=== PATIENT | female | born 1945 | race Caucasian/White ===

== ENCOUNTER 2016-07-16 14:58 | Inpatient (IN) | payer OTHER ==
[~2016-07-16] VITALS: Ht 152.4 cm; Wt 76.1 kg
[~2016-07-16 14:58] MED LIST: ALEVE220 M2 PO; AMITRIPTYLINE H10 M1 PO; AMLODIPINE BESY10 MG PO; ASPIRIN81 M1 PO; ATARAX,VISTARIL25 MG PO; AUGMENTIN875 MG PO; BENTYL10 MG PO; BENTYL20 MG PO; BIOTIN 5000MCG PO; BIOTIN1 MG PO; BISACODYL5 MG PO; BUTALB-APAP-CA1 EACH PO; Bentyl PO; CHOLESTROL MED; CLEOCIN300 MG PO; COLACE100 MG PO; COZAAR50 MG PO; D-VERT25 MG PO; DEPAKOTE ER500 MG PO; DEPAKOTE125 MG PO; DESYREL12.5 MG PO; DETROL LA2 MG PO; DETROL LA4 MG PO; DICYCLOMINE HCL10 MG PO; DICYCLOMINE HCL20 MG PO; DIOVAN HCT 81 TABLET PO; DIOVAN40 MG PO; DIVALPROEX SOD500 M1 PO; Depakote ER (Extende PO; Desyrel PO; Diovan HCT 80/12.5 PO; ENDOCET 5-3251 EACH PO; ESCITALOPRAM OX10 MG PO; Ecotrin PO; FENOFIBRATE54 M1 PO; FIBER DIET1 EACH PO; FIBER LAXATIV0.52 GM PO; FIBER THERAPY0.52 GM PO; FIBER0.52 GM PO; FIORICET,ESG1 TABLET PO; FLAGYL500 MG PO; FLONASE16 G1 BOTH NARES; FLORASTOR250 MG PO; FUROSEMIDE20 MG PO; GABAPENTIN300 MG PO; GEODON60 MG PO; GERD; HYDROCODON-ACE1 EA11 PO; HYDROCODON-ACE1 EAC9 PO; HYDROXYZINE HCL25 M1 PO; IBUPROFEN600 MG PO; KEFLEX500 MG PO; LAMICTAL100 MG PO; LAMICTAL25 MG PO; LASIX20 MG PO; LEXAPRO10 MG PO; LEXAPRO20 MG PO; LO-DOSE ASPIRIN81 M1 PO; LO-DOSE ASPIRIN81 M2 PO; LOFIBRA54 MG PO; LORAZEPAM0.5 MG PO; LOSARTAN POTASS50 MG PO; MELOXICAM15 MG PO; METAMUCIL PACKE1 PKT PO; MIRALAX255 GM PO; MORGIDOX100 MG PO; MYRBETRIQ25 MG PO; NEURONTIN300 MG PO; NORCO 10/3251 TABLET PO; OMEPRAZOLE20 MG PO; OMEPRAZOLE40 M1 PO; OXCARBAZEPINE600 MG PO; PANTOPRAZOLE SO20 MG PO; PANTOPRAZOLE SO40 MG PO; PEPCID40 MG PO; PERCOCET 5/31 TABLET PO; POLYETHYLENE GL17 GM PO; PRAVACHOL20 MG PO; PRAVASTATIN SOD20 MG PO; PRAVASTATIN SOD40 MG PO; PRESERVISION T1 EACH PO; PRILOSEC20 MG PO; PRILOSEC40 MG PO; PROMETHAZINE HC25 M1 PO; PROTONIX40 MG PO; Protonix PO; QUETIAPINE FUMA25 MG PO; QUETIAPINE FUMA50 MG PO; RANITIDINE HCL300 MG PO; TIZANIDINE HCL4 MG PO; TOLTERODINE TART4 MG PO; TRAMADOL HCL50 MG PO; TRAZODONE HCL50 MG PO; TRILEPTAL300 MG PO; TYLENOL WITH C1 EACH PO; Tricor PO; VENLAFAXINE H37.5 MG PO; VISINE A.C300 DROP/1 BOTH EYES; VISION VITAMIN1 EAC1 PO; VISION VITAMIN1 EACH PO; ZANAFLEX4 M1 PO; ZANAFLEX4 MG PO; ZOFRAN4 MG PO; [UNRECOGNIZED DRUG - OTHER]; [UNRECOGNIZED DRUG - REMARK]
[2016-07-16 16:34] LABS: EOSINOPHIL (%) 3.6 % (0-5); EOSINOPHIL COUNT 0.3 K/uL (0-0.3); HEMATOCRIT 37.4 % (36.0-46.0); IMMATURE GRANULOCYTE (%) 0.1 % (0.0-0.7); IMMATURE GRANULOCYTE COUNT 0.1 K/uL; LYMPHOCYTE COUNT 1.2 K/uL (1.0-2.8); MCH 31.2 PG (29.0-34.0); MCHC 35.6 G/DL (30.0-36.0); MCV 87.8 FL (83-99); MEAN PLAT.VOLUME 8.4 uM^3 (9.5-12.4); MONOCYTE COUNT 0.6 K/uL (0-0.8); NEUTROPHIL (%) 70.1 % (45-76); NEUTROPHIL COUNT 4.8 K/uL (1.8-6.4); PLATELET COUNT 249 K/uL (156-360); RBC DIS.WIDTH-CV 12.2 % (11.8-14.6); RBC DIS.WIDTH-SD 38.3 % (39-53); RED BLOOD COUNT 4.26 M/uL (3.80-5.20); WHITE BLOOD COUNT 6.9 K/uL (4.1-10.2)
[2016-07-16 16:46] LABS: CHLORIDE 102 mEq/L (99-109); SODIUM 136 mEq/L (136-147)
[2016-07-16 16:48] LABS: GLUCOSE 104 mg/dL (70-99)
[2016-07-16 16:49] LABS: ANION GAP 9 MEQ/L (2-14)
[2016-07-16 16:50] LABS: TOTAL BILIRUBIN 0.3 mg/dL (0.0-1.0)
[2016-07-16 16:51] LABS: ALKALINE PHOSPHATASE 160 IU/L (3-129)
[2016-07-16 16:52] LABS: GFR ESTIMATE (CALCULATED) 52 mL/min/
[2016-07-16 16:53] LABS: UREA NITROGEN (BUN) 14 mg/dL (9-23)
[2016-07-16 16:58] LABS: TROP-I INTERPRETATION NEGATIVE; TROPONIN-I < 0.01 ng/mL (0.0-0.30)
[2016-07-16 22:09] VITALS: BP 148/69
[2016-07-16 23:24] LABS: TROP-I INTERPRETATION NEGATIVE; TROPONIN-I < 0.01 ng/mL (0.0-0.30)
[2016-07-17 04:42] VITALS: BP 142/76
[2016-07-17 05:18] LABS: HEMATOCRIT 37.3 % (36.0-46.0); MCH 31.7 PG (29.0-34.0); MCHC 35.9 G/DL (30.0-36.0); MCV 88.2 FL (83-99); MEAN PLAT.VOLUME 10.1 uM^3 (9.5-12.4); PLATELET COUNT 213 K/uL (156-360); RBC DIS.WIDTH-CV 12.4 % (11.8-14.6); RED BLOOD COUNT 4.23 M/uL (3.80-5.20); WHITE BLOOD COUNT 8.6 K/uL (4.1-10.2)
[2016-07-17 05:41] LABS: TROP-I INTERPRETATION NEGATIVE; TROPONIN-I < 0.01 ng/mL (0.0-0.30)
[2016-07-17 05:43] LABS: ALKALINE PHOSPHATASE 129 IU/L (3-129); ANION GAP 10 MEQ/L (2-14); CHLORIDE 97 MEQ/L (99-109); GFR ESTIMATE (CALCULATED) > 59 mL/min/; GLUCOSE 91 mg/dL (70-99); POTASSIUM 3.9 MEQ/L (3.7-5.4); SAMPLE HEMOLYSIS CHECK 0; SAMPLE ICTERIC CHECK 0; SAMPLE LIPEMIA CHECK 0; SODIUM 131 MEQ/L (136-147); TOTAL BILIRUBIN 0.4 MG/DL (0.0-1.0); UREA NITROGEN (BUN) 12 mg/dL (9-23)
[2016-07-17 08:18] VITALS: BP 138/89
[2016-07-17 11:53] VITALS: BP 136/78
[2016-07-17 16:24] VITALS: BP 136/72
[2016-07-17 20:03] VITALS: BP 154/92
[2016-07-17 22:11] LABS: ADD MIUA? YES; BILIRUBIN NEGATIVE; BLOOD NEGATIVE; COLOR YELLOW ((YELLOW)); GLUCOSE (STRIP) NEGATIVE; KETONES NEGATIVE; LEUKOCYTES SMALL; NITRITE NEGATIVE; PH, URINE 6.5 (5-8); PROTEIN (STRIP) >=300; SPECIFIC GRAVITY 1.015 (1.000-1.030); UROBILINOGEN 0.2 MG/DL (0.2-1.0)
[2016-07-17 22:17] LABS: RED BLOOD CELLS 0-5 /HPF (0-5)
[2016-07-17 22:18] LABS: BACTERIA 2+ /HPF; CASTS NONE SEEN /LPF; CRYSTALS NONE SEEN; EPITHELIAL CELLS RARE /HPF; MUCUS NONE SEEN /LPF; UCUL ADDED? YES
[2016-07-18 00:30] VITALS: BP 142/76
[2016-07-18 09:25] VITALS: BP 124/68
[2016-07-18 11:57] VITALS: BP 137/83
[2016-07-18 15:44] VITALS: BP 125/71
[2016-07-18 19:36] VITALS: BP 139/73
[2016-07-18 21:47] LABS: C DIFF TOXIN NEGATIVE (NEGATIVE)
[2016-07-18 21:49] LABS: PROBE CHECK PASS; SPECIMEN PROCESSING CONTROL PASS
[2016-07-18 23:04] VITALS: BP 131/74
[2016-07-19 02:25] VITALS: BP 134/73
[2016-07-19 06:29] LABS: MCH 30.8 PG (29.0-34.0); MCHC 34.6 G/DL (30.0-36.0); MCV 89.1 FL (83-99); PLATELET COUNT 179 K/uL (156-360); RBC DIS.WIDTH-CV 12.3 % (11.8-14.6); RBC DIS.WIDTH-SD 39.5 % (39-53); RED BLOOD COUNT 3.93 M/uL (3.80-5.20); WHITE BLOOD COUNT 6.6 K/uL (4.1-10.2)
[2016-07-19 06:56] LABS: ANION GAP 6 MEQ/L (2-14); CHLORIDE 98 MEQ/L (99-109); GFR ESTIMATE (CALCULATED) > 59 mL/min/; GLUCOSE 87 mg/dL (70-99); POTASSIUM 3.8 MEQ/L (3.7-5.4); SAMPLE HEMOLYSIS CHECK 0; SAMPLE ICTERIC CHECK 0; SAMPLE LIPEMIA CHECK 0; SODIUM 131 MEQ/L (136-147); UREA NITROGEN (BUN) 13 mg/dL (9-23)
[2016-07-19 07:20] VITALS: BP 125/65
[2016-07-19 11:57] VITALS: BP 139/63
[2016-07-19] MEDS ORDERED: LOSARTAN POTAS100 MG PO (14:24)
[2016-07-19] MEDS ORDERED: FAMOTIDINE20 MG PO (14:24)
[2016-07-19] MEDS ORDERED: AMLODIPINE BESY10 MG PO (14:24)
[2016-07-19] MEDS ORDERED: ENDOCET 5-3251 EACH PO (14:24)
[2016-07-19] MEDS ORDERED: EFFEXOR37.5 MG PO (14:24)
[2016-07-19] MEDS ORDERED: OXCARBAZEPINE300 MG PO (14:24)
[2016-07-19] MEDS ORDERED: ASPIR-LOW81 MG PO (14:24)
[2016-07-19] MEDS ORDERED: LORAZEPAM0.5 MG PO (14:24)
[2016-07-19] MEDS ORDERED: PRAVASTATIN SOD40 MG PO (14:24)
[2016-07-19] MEDS ORDERED: SEROQUEL50 MG PO (14:24)
[2016-07-19] MEDS ORDERED: CEFTIN500 MG PO (16:07)
== END 2016-07-19 16:29 | disposition home or self-care (01) | DRG 690 ==
LOC: EME 14:58 → EDOF 18:29 → 5WEST 18:29 → 5EAST 07-17 14:50 → 5WEST 07-17 14:50 → 5EAST 07-18 11:52
PROVIDERS: Emergency Medicine; Family Medicine; Internal Medicine; Physician Assistant
DX: N39.0 Urinary tract infection, site not specified (principal); E86.0 Dehydration; F31.9 Bipolar disorder, unspecified; I10 Essential (primary) hypertension; R41.0 Disorientation, unspecified; E78.5 Hyperlipidemia, unspecified; K21.9 Gastro-esophageal reflux disease without esophagitis; G89.29 Other chronic pain; F41.9 Anxiety disorder, unspecified; J45.909 Unspecified asthma, uncomplicated; R07.89 Other chest pain; E66.9 Obesity, unspecified; Z68.30 Body mass index [BMI] 30.0-30.9, adult
CPT/HCPCS: 70551; 71020; 80048; 80053; 81003; 82607; 82746; 84443; 84484; 85025; 85027; 87086; 87493; 93005; 99281; 99285; G0378; J0696; J1644; J7050; J7120

== ENCOUNTER 2016-11-27 00:24 | Emergency (ER) | payer OTHER ==
[~2016-11-27] VITALS: Ht 152.4 cm; Wt 72.0 kg
[~2016-11-27 00:24] MED LIST changes: +ASPIR-LOW81 MG PO; +CEFTIN500 MG PO; +EFFEXOR37.5 MG PO; +FAMOTIDINE20 MG PO; +LOSARTAN POTAS100 MG PO; +OXCARBAZEPINE300 MG PO; +SEROQUEL50 MG PO
[2016-11-27 04:04] LABS: ADD MIUA? NO; BILIRUBIN NEGATIVE; BLOOD NEGATIVE; COLOR COLORLESS ((YELLOW)); GLUCOSE (STRIP) NEGATIVE; KETONES NEGATIVE; LEUKOCYTES NEGATIVE; NITRITE NEGATIVE; PROTEIN (STRIP) 30; SPECIFIC GRAVITY 1.004 (1.000-1.030); UCUL ADDED? NO; UROBILINOGEN 0.2 MG/DL (0.2-1.0)
[2016-11-27 04:44] LABS: HEMATOCRIT 33.9 % (36.0-46.0); MCH 30.9 PG (29.0-34.0); MCHC 34.8 G/DL (30.0-36.0); MCV 88.7 FL (83-99); MEAN PLAT.VOLUME 8.6 uM^3 (9.5-12.4); PLATELET COUNT 244 K/uL (156-360); RBC DIS.WIDTH-CV 12.2 % (11.8-14.6); RBC DIS.WIDTH-SD 39.6 % (39-53); RED BLOOD COUNT 3.82 M/uL (3.80-5.20); WHITE BLOOD COUNT 5.2 K/uL (4.1-10.2)
[2016-11-27 04:52] LABS: CHLORIDE 98 mEq/L (99-109); POTASSIUM 3.9 mEq/L (3.7-5.4); SODIUM 132 mEq/L (136-147)
[2016-11-27 04:54] LABS: GLUCOSE 108 mg/dL (70-99)
[2016-11-27 04:55] LABS: ANION GAP 9 MEQ/L (2-14)
[2016-11-27 04:56] LABS: TOTAL BILIRUBIN 0.3 mg/dL (0.0-1.0)
[2016-11-27 04:57] LABS: ALKALINE PHOSPHATASE 125 IU/L (3-129)
[2016-11-27 04:58] LABS: GFR ESTIMATE (CALCULATED) 58 mL/min/
[2016-11-27 04:59] LABS: UREA NITROGEN (BUN) 19 mg/dL (9-23)
[2016-11-27 05:01] LABS: LIPASE 514 U/L (1.0-51.0)
[2016-11-27 05:05] LABS: TROP-I INTERPRETATION NEGATIVE; TROPONIN-I < 0.01 ng/mL (0.0-0.30)
[2016-11-27] MEDS ORDERED: SEROQUEL50 MG PO (06:51)
[2016-11-27 08:17] VITALS: BP 146/87
== END 2016-11-27 08:18 | disposition home or self-care (01) ==
LOC: EME 00:24
PROVIDERS: Emergency Medicine
DX: F03.90 Unspecified dementia, unspecified severity, without behavioral disturbance, psychotic disturbance, mood disturbance, and anxiety (principal); E87.1 Hypo-osmolality and hyponatremia; R74.8 Abnormal levels of other serum enzymes; G47.00 Insomnia, unspecified; I10 Essential (primary) hypertension; K21.9 Gastro-esophageal reflux disease without esophagitis; E78.5 Hyperlipidemia, unspecified
CPT/HCPCS: 71010; 74177; 80053; 81003; 83690; 84484; 85027; 93005; 99281; 99285; J7030

== ENCOUNTER 2017-04-01 14:46 | Emergency (ER) | payer OTHER ==
[~2017-04-01] VITALS: Ht 152.4 cm; Wt 66.4 kg
[2017-04-01 15:23] LABS: HEMATOCRIT 37.7 % (36.0-46.0); MCHC 34.5 G/DL (30.0-36.0); MEAN PLAT.VOLUME 8.8 uM^3 (9.5-12.4); PLATELET COUNT 256 K/uL (156-360); RBC DIS.WIDTH-CV 11.9 % (11.8-14.6); RBC DIS.WIDTH-SD 38.9 % (39-53); RED BLOOD COUNT 4.19 M/uL (3.80-5.20); WHITE BLOOD COUNT 6.8 K/uL (4.1-10.2)
[2017-04-01 15:33] LABS: CHLORIDE 93 mEq/L (99-109); POTASSIUM 4.5 mEq/L (3.7-5.4); SODIUM 129 mEq/L (136-147)
[2017-04-01 15:36] LABS: GLUCOSE 100 mg/dL (70-99)
[2017-04-01 15:37] LABS: ADD MIUA? YES; BILIRUBIN NEGATIVE; BLOOD NEGATIVE; COLOR YELLOW ((YELLOW)); GLUCOSE (STRIP) NEGATIVE; KETONES NEGATIVE; LEUKOCYTES TRACE; NITRITE NEGATIVE; PROTEIN (STRIP) 100; SPECIFIC GRAVITY 1.013 (1.000-1.030); UROBILINOGEN 0.2 MG/DL (0.2-1.0)
[2017-04-01 15:37] LABS: ANION GAP 9 MEQ/L (2-14)
[2017-04-01 15:38] LABS: TOTAL BILIRUBIN 0.3 mg/dL (0.0-1.0)
[2017-04-01 15:39] LABS: ALKALINE PHOSPHATASE 153 IU/L (3-129); GFR ESTIMATE (CALCULATED) > 59 mL/min/
[2017-04-01 15:41] LABS: UREA NITROGEN (BUN) 14 mg/dL (9-23)
[2017-04-01 15:41] LABS: BACTERIA NONE SEEN /HPF; EPITHELIAL CELLS RARE /HPF; MUCUS NONE SEEN /LPF; RED BLOOD CELLS 0-5 /HPF (0-5); WHITE BLOOD CELLS 0-5 /HPF (0-5)
[2017-04-01 15:43] LABS: LIPASE 51 U/L (1.0-51.0); TROP-I INTERPRETATION NEGATIVE; TROPONIN-I < 0.01 ng/mL (0.0-0.30)
[2017-04-01] MEDS ORDERED: ZOFRAN ODT4 MG PO (16:57)
[2017-04-01 17:02] VITALS: BP 147/66
== END 2017-04-01 17:03 | disposition home or self-care (01) ==
LOC: EME 14:46
PROVIDERS: Nurse Practitioner Family
DX: B34.9 Viral infection, unspecified (principal); R10.30 Lower abdominal pain, unspecified; E87.1 Hypo-osmolality and hyponatremia; I10 Essential (primary) hypertension; E78.5 Hyperlipidemia, unspecified; K21.9 Gastro-esophageal reflux disease without esophagitis; F41.9 Anxiety disorder, unspecified; F32.9 Major depressive disorder, single episode, unspecified; Z88.8 Allergy status to other drugs, medicaments and biological substances
CPT/HCPCS: 74177; 80053; 81003; 83690; 84484; 85027; 93005; 99281; 99285; J7030

== ENCOUNTER 2017-05-11 13:35 | Emergency (ER) | payer OTHER ==
[~2017-05-11] VITALS: Ht 152.4 cm; Wt 64.3 kg
[~2017-05-11 13:35] MED LIST changes: +ZOFRAN ODT4 MG PO
[2017-05-11 14:09] LABS: HEMATOCRIT 39.6 % (36.0-46.0); MCH 30.9 PG (29.0-34.0); MCHC 33.8 G/DL (30.0-36.0); MCV 91.2 FL (83-99); PLATELET COUNT 259 K/uL (156-360); RBC DIS.WIDTH-CV 12.1 % (11.8-14.6); RBC DIS.WIDTH-SD 40.6 % (39-53); RED BLOOD COUNT 4.34 M/uL (3.80-5.20); WHITE BLOOD COUNT 7.4 K/uL (4.1-10.2)
[2017-05-11 14:20] LABS: CHLORIDE 105 mEq/L (99-109); POTASSIUM 4.4 mEq/L (3.7-5.4); SODIUM 135 mEq/L (136-147)
[2017-05-11 14:21] LABS: GLUCOSE 111 mg/dL (70-99)
[2017-05-11 14:23] LABS: ANION GAP 8 MEQ/L (2-14)
[2017-05-11 14:25] LABS: GFR ESTIMATE (CALCULATED) 47 mL/min/
[2017-05-11 14:26] LABS: UREA NITROGEN (BUN) 16 mg/dL (9-23)
[2017-05-11 14:36] LABS: TROP-I INTERPRETATION NEGATIVE; TROPONIN-I < 0.01 ng/mL (0.0-0.30)
[2017-05-11] MEDS ORDERED: ELIQUIS5 MG PO (18:00)
[2017-05-11 19:05] VITALS: BP 141/82
== END 2017-05-11 19:06 | disposition home or self-care (01) ==
LOC: EME 13:35
DX: I48.91 Unspecified atrial fibrillation (principal); R00.2 Palpitations; R25.2 Cramp and spasm; I10 Essential (primary) hypertension; E78.5 Hyperlipidemia, unspecified
CPT/HCPCS: 71020; 71275; 80048; 84484; 85027; 93005; 99281; 99285

== ENCOUNTER 2017-06-09 18:15 | Emergency (ER) | payer OTHER ==
[~2017-06-09] VITALS: Ht 152.4 cm; Wt 63.5 kg
[~2017-06-09 18:15] MED LIST changes: +ELIQUIS5 MG PO
[2017-06-09 18:49] VITALS: BP 170/134
[2017-06-10] MEDS ORDERED: ELIQUIS5 MG PO (23:14)
[2017-06-10] MEDS ORDERED: PRAVACHOL20 MG PO (23:15)
[2017-06-10] MEDS ORDERED: ARICEPT10 MG PO (23:16)
[2017-06-10] MEDS ORDERED: METOPROLOL TART25 MG PO (23:18)
[2017-06-10] MEDS ORDERED: RISPERDAL0.25 MG PO (23:19)
[2017-06-10] MEDS ORDERED: COZAAR100 MG PO (23:20)
[2017-06-10] MEDS ORDERED: LINZESS145 MCG PO (23:21)
[2017-06-10] MEDS ORDERED: MOBIC15 MG PO (23:21)
== END 2017-06-09 19:20 | disposition left against medical advice (07) ==
LOC: EME 18:15
DX: R41.0 Disorientation, unspecified (principal); Z53.21 Procedure and treatment not carried out due to patient leaving prior to being seen by health care provider

== ENCOUNTER 2017-06-10 16:00 | Emergency (ER) | payer OTHER ==
[~2017-06-10] VITALS: Ht 152.4 cm; Wt 65.7 kg
[2017-06-10 16:53] LABS: BASOPHIL (%) 0.7 % (0-1); BASOPHIL COUNT 0.1 K/uL (0-0.1); EOSINOPHIL COUNT 0.1 K/uL (0-0.3); HEMATOCRIT 40.4 % (36.0-46.0); HEMOGLOBIN 13.5 G/DL (11.9-15.5); IMMATURE GRANULOCYTE (%) 0.4 % (0.0-0.7); LYMPHOCYTE (%) 17.9 % (15-42); LYMPHOCYTE COUNT 1.3 K/uL (1.0-2.8); MCH 30.7 PG (29.0-34.0); MCHC 33.4 G/DL (30.0-36.0); MCV 91.8 FL (83-99); MONOCYTE (%) 9.2 % (3-12); MONOCYTE COUNT 0.7 K/uL (0-0.8); NEUTROPHIL (%) 70.8 % (45-76); PLATELET COUNT 238 K/uL (156-360); RBC DIS.WIDTH-CV 12.1 % (11.8-14.6); RBC DIS.WIDTH-SD 40.8 % (39-53)
[2017-06-10 17:00] LABS: INTER. NORMALIZED RATIO 1.2
[2017-06-10 17:02] LABS: PTT 32.7 SEC (25-37)
[2017-06-10 17:06] LABS: CHLORIDE 104 mEq/L (99-109); MAGNESIUM 1.9 mg/dL (1.3-2.7); POTASSIUM 4.1 mEq/L (3.7-5.4); SODIUM 136 mEq/L (136-147)
[2017-06-10 17:08] LABS: GLUCOSE 97 mg/dL (70-99); TOTAL PROTEIN 7.2 g/dL (6.4-8.3)
[2017-06-10 17:10] LABS: TOTAL BILIRUBIN 0.5 mg/dL (0.0-1.0)
[2017-06-10 17:12] LABS: ALKALINE PHOSPHATASE 146 IU/L (3-129); GFR ESTIMATE (CALCULATED) 58 mL/min/
[2017-06-10 17:13] LABS: UREA NITROGEN (BUN) 18 mg/dL (9-23)
[2017-06-10 17:14] LABS: AST (GOT) 15 IU/L (2-34)
[2017-06-10 17:15] LABS: ALT (GPT) 13 IU/L (3-49); CREATINE KINASE 47 IU/L (1-294); TOTAL CK 47 IU/L (1-294)
[2017-06-10 17:17] LABS: TROP-I INTERPRETATION NEGATIVE; TROPONIN-I < 0.01 ng/mL (0.0-0.30)
[2017-06-10 17:21] LABS: CK-MB 0.6 ng/mL (0.0-4.9); CKMB RELATIVE INDEX 1.3 (0.0-3.9)
[2017-06-10 19:40] LABS: APPEARANCE CLEAR ((CLEAR)); BILIRUBIN NEGATIVE; BLOOD NEGATIVE; COLOR YELLOW ((YELLOW)); GLUCOSE (STRIP) NEGATIVE; KETONES NEGATIVE; LEUKOCYTES SMALL; NITRITE NEGATIVE; PROTEIN (STRIP) 30; SPECIFIC GRAVITY 1.009 (1.000-1.030); UROBILINOGEN 0.2 MG/DL (0.2-1.0)
[2017-06-10 19:51] LABS: BACTERIA RARE /HPF; EPITHELIAL CELLS 1+ /HPF; MUCUS TRACE /LPF; RED BLOOD CELLS 0-5 /HPF (0-5); UCUL ADDED? NO; WHITE BLOOD CELLS 0-5 /HPF (0-5)
[2017-06-10] MEDS ORDERED: ELIQUIS5 MG PO (23:14)
[2017-06-10] MEDS ORDERED: PRAVACHOL20 MG PO (23:15)
[2017-06-10] MEDS ORDERED: ARICEPT10 MG PO (23:16)
[2017-06-10] MEDS ORDERED: METOPROLOL TART25 MG PO (23:18)
[2017-06-10] MEDS ORDERED: RISPERDAL0.25 MG PO (23:19)
[2017-06-10] MEDS ORDERED: COZAAR100 MG PO (23:20)
[2017-06-10] MEDS ORDERED: LINZESS145 MCG PO (23:21)
[2017-06-10] MEDS ORDERED: MOBIC15 MG PO (23:21)
[2017-06-11 06:18] LABS: TROP-I INTERPRETATION NEGATIVE; TROPONIN-I < 0.01 ng/mL (0.0-0.30)
[2017-06-11 08:50] VITALS: BP 1139/72
== END 2017-06-11 08:53 | disposition home or self-care (01) ==
LOC: EME 16:00
PROVIDERS: Emergency Medicine
DX: R07.89 Other chest pain (principal); F32.9 Major depressive disorder, single episode, unspecified; F31.9 Bipolar disorder, unspecified; F41.9 Anxiety disorder, unspecified; R41.0 Disorientation, unspecified; K21.9 Gastro-esophageal reflux disease without esophagitis; I10 Essential (primary) hypertension; E78.5 Hyperlipidemia, unspecified; Z88.6 Allergy status to analgesic agent; Z88.5 Allergy status to narcotic agent; Z88.8 Allergy status to other drugs, medicaments and biological substances
CPT/HCPCS: 70450; 71010; 80053; 81003; 82550; 82553; 83605; 83735; 84484; 85025; 85610; 85730; 90832; 90839; 93005; 99281; 99285

== ENCOUNTER 2017-06-15 17:52 | Emergency (ER) | payer OTHER ==
[~2017-06-15] VITALS: Ht 152.4 cm; Wt 63.3 kg
[~2017-06-15 17:52] MED LIST changes: +ARICEPT10 MG PO; +COZAAR100 MG PO; +LINZESS145 MCG PO; +METOPROLOL TART25 MG PO; +MOBIC15 MG PO; +RISPERDAL0.25 MG PO
[2017-06-15 19:09] LABS: HEMATOCRIT 38.7 % (36.0-46.0); HEMOGLOBIN 13.1 G/DL (11.9-15.5); MCH 31.3 PG (29.0-34.0); MCHC 33.9 G/DL (30.0-36.0); MCV 92.4 FL (83-99); PLATELET COUNT 210 K/uL (156-360); RBC DIS.WIDTH-CV 12.2 % (11.8-14.6); RBC DIS.WIDTH-SD 41.4 % (39-53); RED BLOOD COUNT 4.19 M/uL (3.80-5.20); WHITE BLOOD COUNT 7.7 K/uL (4.1-10.2)
[2017-06-15 19:20] LABS: ALBUMIN 3.8 g/dL (3.2-4.8); CHLORIDE 105 mEq/L (99-109); POTASSIUM 4.2 mEq/L (3.7-5.4); SODIUM 138 mEq/L (136-147)
[2017-06-15 19:22] LABS: GLUCOSE 106 mg/dL (70-99); TOTAL PROTEIN 6.9 g/dL (6.4-8.3)
[2017-06-15 19:25] LABS: SERUM ETHYL ALCOHOL < 10 mg/dL
[2017-06-15 19:26] LABS: ALKALINE PHOSPHATASE 128 IU/L (3-129); CREATININE 1.2 mg/dL (0.6-1.3); GFR ESTIMATE (CALCULATED) 47 mL/min/
[2017-06-15 19:27] LABS: AST (GOT) 12 IU/L (2-34); UREA NITROGEN (BUN) 22 mg/dL (9-23)
[2017-06-15 19:28] LABS: TOTAL BILIRUBIN 0.2 mg/dL (0.0-1.0)
[2017-06-15 19:29] LABS: ALT (GPT) 10 IU/L (3-49)
[2017-06-15] MEDS ORDERED: OXCARBAZEPINE600 MG PO (20:29)
[2017-06-15] MEDS ORDERED: MYRBETRIQ25 MG PO (20:29)
[2017-06-15] MEDS ORDERED: ASPIR 8181 M1 PO (20:31)
[2017-06-15] MEDS ORDERED: ATARAX10 MG PO (20:31)
[2017-06-15 20:58] LABS: AMPHETAMINE NEGATIVE (500 ng/mL); BARBITURATES NEGATIVE (200 ng/mL); BENZODIAZEPINES NEGATIVE (150 ng/mL); BUPRENORPHINE NEGATIVE (10 ng/mL); COCAINE NEGATIVE (150 ng/mL); METHADONE NEGATIVE (200 ng/mL); METHAMPHETAMINE NEGATIVE (500 ng/mL); OPIATES (MORPHINE) NEGATIVE (100 ng/mL); OXYCODONE NEGATIVE (100 ng/mL); PHENCYCLIDINE NEGATIVE (25 ng/mL); PROPOXYPHENE NEGATIVE (300 ng/mL); THC CANNABINOIDS NEGATIVE (50 ng/mL); TRICYCLIC ANTIDEPRESSANTS NEGATIVE (300 ng/mL)
[2017-06-15 21:01] LABS: APPEARANCE CLEAR ((CLEAR)); BILIRUBIN NEGATIVE; BLOOD NEGATIVE; COLOR STRAW ((YELLOW)); GLUCOSE (STRIP) NEGATIVE; KETONES NEGATIVE; LEUKOCYTES TRACE; NITRITE NEGATIVE; PROTEIN (STRIP) NEGATIVE; SPECIFIC GRAVITY 1.009 (1.000-1.030); UROBILINOGEN 0.2 MG/DL (0.2-1.0)
[2017-06-15 21:12] LABS: BACTERIA NONE SEEN /HPF; EPITHELIAL CELLS 1+ /HPF; MUCUS TRACE /LPF; RED BLOOD CELLS 0-5 /HPF (0-5); WHITE BLOOD CELLS 0-5 /HPF (0-5)
[2017-06-16 01:12] VITALS: BP 128/68
== END 2017-06-16 01:16 ==
LOC: EME 17:52
PROVIDERS: Emergency Medicine
DX: F31.4 Bipolar disorder, current episode depressed, severe, without psychotic features (principal); R41.9 Unspecified symptoms and signs involving cognitive functions and awareness; R45.851 Suicidal ideations; F03.90 Unspecified dementia, unspecified severity, without behavioral disturbance, psychotic disturbance, mood disturbance, and anxiety; K21.9 Gastro-esophageal reflux disease without esophagitis; I10 Essential (primary) hypertension; E78.5 Hyperlipidemia, unspecified; F41.9 Anxiety disorder, unspecified; Z88.6 Allergy status to analgesic agent; Z88.5 Allergy status to narcotic agent; Z88.8 Allergy status to other drugs, medicaments and biological substances
CPT/HCPCS: 80053; 81003; 85027; 90837; 99281; 99285; G0480

== ENCOUNTER 2017-11-04 19:37 | Observation (INO) | payer OTHER ==
[~2017-11-04] VITALS: Ht 152.4 cm; Wt 68.9 kg
[~2017-11-04 19:37] MED LIST changes: +ASPIR 8181 M1 PO; +ATARAX10 MG PO
[2017-11-04 21:40] LABS: HEMATOCRIT 38.4 % (36.0-46.0); HEMOGLOBIN 13.2 G/DL (11.9-15.5); MCH 30.9 PG (29.0-34.0); MCHC 34.4 G/DL (30.0-36.0); MCV 89.9 FL (83-99); PLATELET COUNT 205 K/uL (156-360); RBC DIS.WIDTH-CV 12.4 % (11.8-14.6); RBC DIS.WIDTH-SD 40.4 % (39-53); RED BLOOD COUNT 4.27 M/uL (3.80-5.20); WHITE BLOOD COUNT 9.7 K/uL (4.1-10.2)
[2017-11-04 21:49] LABS: CHLORIDE 105 mEq/L (99-109); POTASSIUM 3.8 mEq/L (3.7-5.4); SODIUM 140 mEq/L (136-147)
[2017-11-04 21:51] LABS: GLUCOSE 87 mg/dL (70-99)
[2017-11-04 21:55] LABS: CREATININE 1.1 mg/dL (0.6-1.3); GFR ESTIMATE (CALCULATED) 52 mL/min/
[2017-11-04 21:56] LABS: UREA NITROGEN (BUN) 15 mg/dL (9-23)
[2017-11-04 22:01] LABS: TROP-I INTERPRETATION NEGATIVE; TROPONIN-I < 0.01 ng/mL (0.0-0.30)
[2017-11-04] MEDS ORDERED: NORVASC10 MG PO (22:12)
[2017-11-04] MEDS ORDERED: PROZAC10 MG PO (22:16)
[2017-11-04] MEDS ORDERED: PEPCID40 MG PO (22:16)
[2017-11-04] MEDS ORDERED: ZYPREXA2.5 MG PO (22:17)
[2017-11-04] MEDS ORDERED: LASIX20 MG PO (22:17)
[2017-11-04] MEDS ORDERED: TYLENOL EXTRA500 MG PO (22:17)
[2017-11-04 22:19] LABS: APPEARANCE CLEAR ((CLEAR)); BILIRUBIN NEGATIVE; BLOOD NEGATIVE; COLOR COLORLESS ((YELLOW)); GLUCOSE (STRIP) NEGATIVE; KETONES NEGATIVE; LEUKOCYTES NEGATIVE; NITRITE NEGATIVE; PROTEIN (STRIP) NEGATIVE; SPECIFIC GRAVITY 1.003 (1.000-1.030); UROBILINOGEN 0.2 MG/DL (0.2-1.0)
[2017-11-04] MEDS ORDERED: OCUVITE ADULT1 EAC1 PO (22:19)
[2017-11-04 22:28] LABS: D-DIMER ELISA < 150.00 ng/mLDDU (<230)
[2017-11-05 00:11] VITALS: BP 146/82
[2017-11-05 08:00] VITALS: BP 137/72
[2017-11-05 10:27] LABS: TROP-I INTERPRETATION NEGATIVE; TROPONIN-I < 0.01 ng/mL (0.0-0.30)
[2017-11-05 15:44] VITALS: BP 117/63
[2017-11-05] MEDS ORDERED: METOCLOPRAMIDE H5 MG PO (16:27)
[2017-11-05] MEDS ORDERED: PANTOPRAZOLE SO40 MG PO (16:27)
== END 2017-11-05 17:14 | disposition home or self-care (01) ==
LOC: EME 19:37 → EDOF 22:31 → 4SOUTH 22:31 → ENRESERV 22:35 → 4SOUTH 23:52
PROVIDERS: Physician Assistant; Physician Assistant Medical
DX: R07.89 Other chest pain (principal); R10.9 Unspecified abdominal pain; K21.9 Gastro-esophageal reflux disease without esophagitis; K31.84 Gastroparesis; R11.2 Nausea with vomiting, unspecified; K44.9 Diaphragmatic hernia without obstruction or gangrene; I13.10 Hypertensive heart and chronic kidney disease without heart failure, with stage 1 through stage 4 chronic kidney disease, or unspecified chronic kidney disease; N18.3 Chronic kidney disease, stage 3 (moderate); I48.0 Paroxysmal atrial fibrillation; I25.10 Atherosclerotic heart disease of native coronary artery without angina pectoris; F41.9 Anxiety disorder, unspecified; F31.9 Bipolar disorder, unspecified; E78.5 Hyperlipidemia, unspecified; Z79.01 Long term (current) use of anticoagulants; Z79.82 Long term (current) use of aspirin; Z88.6 Allergy status to analgesic agent
CPT/HCPCS: 71046; 80048; 81003; 84484; 85027; 85379; 87641; 93005; 99281; 99285; C9113; G0378; J2405

== ENCOUNTER → 2017-11-12 | Outpatient (CLI) | payer OTHER ==
[~2017-11-12] MED LIST changes: +METOCLOPRAMIDE H5 MG PO; +NORVASC10 MG PO; +OCUVITE ADULT1 EAC1 PO; +PROZAC10 MG PO; +TYLENOL EXTRA500 MG PO; +ZYPREXA2.5 MG PO
== END | disposition home or self-care (01) ==
LOC: AMB 11:57
DX: K29.00 Acute gastritis without bleeding (principal); K29.50 Unspecified chronic gastritis without bleeding; K21.0 Gastro-esophageal reflux disease with esophagitis; F31.9 Bipolar disorder, unspecified; F41.9 Anxiety disorder, unspecified; Z79.01 Long term (current) use of anticoagulants; Z79.82 Long term (current) use of aspirin
CPT/HCPCS: 88305; 88342 TC